=== PATIENT | male | born 1935 | race Caucasian/White ===

== ENCOUNTER 2017-12-13 12:27 | Observation (INO) | payer MEDICARE ==
[2017-12-13] VITALS (23 sets, daily range): BP systolic 82–168; BP diastolic 42–76
[~2017-12-13] VITALS: Ht 162.6 cm; Wt 78.1 kg
[2017-12-13] MEDS ORDERED: LORazepam 0.5 MG tablet PO PRN (13:00)
[2017-12-13] MEDS ORDERED: diphenhydrAMINE 25mg capsule PO PRN (13:00)
[2017-12-13] MEDS ORDERED: OSC500T PO (13:14)
[2017-12-13] MEDS ORDERED: VITA100T3 PO (13:14)
[2017-12-13] MEDS ORDERED: OMEP40CA37 PO (13:14)
[2017-12-13] MEDS ORDERED: ASCO-103 PO (13:14)
[2017-12-13] MEDS ORDERED: MULT-1085 PO (13:14)
[2017-12-13] MEDS ORDERED: SENN1TAB5 PO (13:14)
[2017-12-13] MEDS ORDERED: ASPI-920 PO (13:14)
[2017-12-13] MEDS ORDERED: VITA200T8 PO (13:14)
[2017-12-13] MEDS: normal saline 1000ml 1,000 ML IV SCH ×2 (13:25→20:00)
[2017-12-13 13:42] LABS: BASOPHILS # (AUTO) 0.2 X10'3 (0-0.2); BASOPHILS % (AUTO) 1.3 % (0-1); EOSINOPHILS # (AUTO) 0.3 X10'3 (0-0.9); EOSINOPHILS % (AUTO) 1.7 % (0-6); HEMATOCRIT 45.9 % (42.0-52.0); HEMOGLOBIN 15.5 g/dl (14.0-17.9); LYMPHOCYTES % (AUTO) 13.7 % (21-51); MEAN CORPUSCULAR HEMOGLOBIN 30.3 PG (27.0-31.0); MEAN CORPUSCULAR HGB CONC 33.7 % (33.0-36.5); MEAN PLATELET VOLUME 5.9 FL (7.4-10.4); MONOCYTES # (AUTO) 0.9 X10'3 (0-0.9); MONOCYTES % (AUTO) 6.2 % (2-12); NEUTROPHILS # (AUTO) 11.3 X10'3 (1.8-7.7); NEUTROPHILS % (AUTO) 77.1 % (42-75); PLATELET COUNT 631 X10'3 (140-440); RED CELL DISTRIBUTION WIDTH 14.8 % (11.5-14.5); WHITE BLOOD COUNT 14.6 X10'3 (4.5-11.0)
[2017-12-13 13:47] LABS: PARTIAL THROMBOPLASTIN TIME 30 SECONDS (22-32); PROTHROMBIN TIME 10.1 SECONDS (9.0-12.0)
[2017-12-13 13:52] LABS: ALBUMIN 3.8 G/DL (3.4-5.0); ANION GAP 8 (8-16); BLOOD UREA NITROGEN 18 MG/DL (7-18); CALCIUM 8.7 MG/DL (8.5-10.1); CHLORIDE 103 MMOL/L (99-107); GLUCOSE 86 MG/DL (70-104); POTASSIUM 3.8 MMOL/L (3.5-5.1); SODIUM 142 MMOL/L (135-145); eGFR 58 ML/MIN
[2017-12-13] MEDS ORDERED: fentaNYL/PF 50MCG/1 ML 2ML syringe ONE (13:53)
[2017-12-13] MEDS ORDERED: LIDOcaine 1%/PF (10mg/ml) 5ml vial ONE ×2 (13:53→15:27)
[2017-12-13] MEDS ORDERED: midazolam 2 mg/2 ml injection ONE (13:53)
[2017-12-13] MEDS ORDERED: iohexol 350 MG/ML 50ML vial IV ONE ×2 (13:54→14:33)
[2017-12-13] MEDS ORDERED: heparin 1,000unit/ml 10ml vial 10 ML ONE ×2 (13:54→15:31)
[2017-12-13] MEDS ORDERED: nitroGLYCERIN-Tridil 50MG/D5W 250 ML IV ONE (13:54)
[2017-12-13] MEDS ORDERED: heparin 1,000 UNITS/NS 500ml 500 ML ONE (13:54)
[2017-12-13] MEDS ORDERED: iohexol 350MG/ML 100ml bottle IV ONE ×2 (13:54→14:57)
[2017-12-13] MEDS ORDERED: ticagrelor 90mg tablet ONE (15:24)
[2017-12-13 15:41] LABS: ISTAT Hct MIX 39 %PCV (42-52); ISTAT O2 SATURATION MIX VENOUS 73 % (60-80); ISTAT SOURCE MIX
[2017-12-13 16:06] LABS: ISTAT HGB ART 12.9 g/dl (14.0-18.0); ISTAT Hct ART 38 %PCV (42-52); ISTAT O2 SATURATION ARTERIAL 94 % (95-98); ISTAT SOURCE ART
[2017-12-13] MEDS ORDERED: magnesium hydroxide 30ml (MOM) UD suspension PO PRN (17:15)
[2017-12-13] MEDS ORDERED: HYDROcodone/acetaminophen 10/325mg tab PO PRN ×2 (17:15)
[2017-12-13] MEDS ORDERED: acetaminophen 325mg tablet PO PRN (17:15)
[2017-12-13] MEDS ORDERED: cyclobenzaprine 10mg tablet PO PRN (17:15)
[2017-12-13] MEDS ORDERED: OXAZEpam 15mg capsule PO PRN (17:15)
[2017-12-13] MEDS: aspirin 81mg tab.chew PO SCH (17:30)
[2017-12-13] MEDS: docusate sod 100mg capsule PO SCH (20:00)
[2017-12-13] MEDS: ticagrelor 90mg tablet PO SCH (21:57)
[2017-12-14 03:00] VITALS: BP 111/57
[2017-12-14 06:14] LABS: BASOPHILS # (AUTO) 0.1 X10'3 (0-0.2); BASOPHILS % (AUTO) 0.6 % (0-1); EOSINOPHILS # (AUTO) 0.4 X10'3 (0-0.9); EOSINOPHILS % (AUTO) 2.2 % (0-6); HEMATOCRIT 40.1 % (42.0-52.0); HEMOGLOBIN 13.9 g/dl (14.0-17.9); LYMPHOCYTES # (AUTO) 1.5 X10'3 (1.1-4.8); MEAN CORPUSCULAR HGB CONC 34.6 % (33.0-36.5); MEAN CORPUSCULAR VOLUME 89.7 FL (78-98); MEAN PLATELET VOLUME 5.9 FL (7.4-10.4); MONOCYTES # (AUTO) 0.7 X10'3 (0-0.9); MONOCYTES % (AUTO) 4.3 % (2-12); NEUTROPHILS # (AUTO) 13.9 X10'3 (1.8-7.7); NEUTROPHILS % (AUTO) 83.9 % (42-75); PLATELET COUNT 531 X10'3 (140-440); RED BLOOD COUNT 4.47 X10'6 (4.70-6.10); RED CELL DISTRIBUTION WIDTH 14.8 % (11.5-14.5); WHITE BLOOD COUNT 16.6 X10'3 (4.5-11.0)
[2017-12-14 06:56] LABS: ALANINE AMINOTRANSFERASE 13 U/L (12-78); ALBUMIN 2.9 G/DL (3.4-5.0); ALBUMIN/GLOBULIN RATIO 0.8 (1.1-1.5); ALKALINE PHOSPHATASE 75 IU/L (46-116); ANION GAP 9 (8-16); ASPARTATE AMINO TRANSFERASE 11 U/L (10-37); BILIRUBIN,TOTAL 0.8 MG/DL (0.1-1.0); BLOOD UREA NITROGEN 18 MG/DL (7-18); BUN/CREATININE RATIO 15.5 (5.4-32.0); CALCIUM 8.1 MG/DL (8.5-10.1); CHLORIDE 108 MMOL/L (99-107); CHOL/HDL RATIO 5.4 (0.00-4.99); CHOLESTEROL 98 MG/DL (0-200); CREATININE 1.16 MG/DL (0.60-1.10); GLUCOSE 93 MG/DL (70-104); HDL CHOLESTEROL 18 MG/DL (35-60); LDL CHOLESTEROL 66 MG/DL (50-100); POTASSIUM 4.1 MMOL/L (3.5-5.1); SODIUM 143 MMOL/L (135-145); TOTAL CARBON DIOXIDE 26.4 MMOL/L (24-32); TOTAL PROTEIN 6.4 G/DL (6.4-8.2); TRIGLYCERIDES 107 MG/DL (20-135); eGFR 60 ML/MIN
[2017-12-14 07:00] VITALS: BP 122/51
[2017-12-14] MEDS: aspirin 81mg tab.chew PO SCH (07:14)
[2017-12-14] MEDS: docusate sod 100mg capsule PO SCH (07:14)
[2017-12-14] MEDS: ticagrelor 90mg tablet PO SCH (07:15)
[2017-12-14] MEDS ORDERED: pantoprazole 40mg Tablet.DR PO SCH (07:30)
[2017-12-14] MEDS ORDERED: TICA90TA PO (07:33)
[2017-12-14] MEDS ORDERED: ATOR20TA66 PO (07:33)
[2017-12-14] MEDS ORDERED: atorvastatin 20mg tablet PO SCH (08:00)
[2017-12-14] MEDS ORDERED: calcium carbonate 500mg tablet PO SCH (08:00)
[2017-12-14] MEDS ORDERED: vitamin E 400 unit capsule PO SCH (08:00)
[2017-12-14] MEDS ORDERED: multivitamins, therapeutics tablet PO SCH (08:00)
[2017-12-14] MEDS ORDERED: ascorbic acid 500mg tablet PO SCH (08:00)
[2017-12-14] MEDS ORDERED: sennosides/docusate sodium tablet PO SCH (08:00)
== END 2017-12-14 08:32 | disposition home or self-care (01) ==
LOC: SSTAY O 12:27 → PCU 3S 20:08
PROVIDERS: ADMIT Internal Medicine Cardiovascular Disease; ATTEND Internal Medicine Cardiovascular Disease
DX: I25.10 Atherosclerotic heart disease of native coronary artery without angina pectoris (principal); E78.5 Hyperlipidemia, unspecified; R94.39 Abnormal result of other cardiovascular function study; R53.83 Other fatigue; R06.00 Dyspnea, unspecified; R00.1 Bradycardia, unspecified; Z79.899 Other long term (current) drug therapy
CPT/HCPCS: 36415; 80048; 80053; 80061; 82803; 85014; 85025; 85347; 85610; 85730; 87070; 93005; 93460; A6257; A6258; C1725; C1769; C1874; C1894; C9600; G0378; J1644; J2001; J2250; J3010; J3490; J7030; Q0163; Q9967; 99152; 99153; A4620

== ENCOUNTER 2019-03-20 09:49 | Day surgery (SDC) | payer MEDICARE ==
[2019-03-19 11:04] LABS: BASOPHILS # (AUTO) 0.1 X10'3 (0-0.2); EOSINOPHILS # (AUTO) 0.2 X10'3 (0-0.9); EOSINOPHILS % (AUTO) 1.4 % (0-6); HEMATOCRIT 38.6 % (42.0-52.0); HEMOGLOBIN 12.4 g/dl (14.0-17.9); LYMPHOCYTES # (AUTO) 1.5 X10'3 (1.1-4.8); LYMPHOCYTES % (AUTO) 12.2 % (21-51); MEAN CORPUSCULAR HEMOGLOBIN 27.6 PG (27.0-31.0); MEAN CORPUSCULAR HGB CONC 32.1 g/dL (33.0-36.5); MEAN CORPUSCULAR VOLUME 86.2 FL (78-98); MEAN PLATELET VOLUME 6.6 FL (7.4-10.4); MONOCYTES # (AUTO) 0.7 X10'3 (0-0.9); MONOCYTES % (AUTO) 5.7 % (2-12); NEUTROPHILS # (AUTO) 9.7 X10'3 (1.8-7.7); NEUTROPHILS % (AUTO) 79.7 % (42-75); PLATELET COUNT 407 X10'3 (140-440); RED BLOOD COUNT 4.47 X10'6 (4.70-6.10); RED CELL DISTRIBUTION WIDTH 19.8 % (11.5-14.5); WHITE BLOOD COUNT 12.2 X10'3 (4.5-11.0)
[2019-03-19 11:17] LABS: PARTIAL THROMBOPLASTIN TIME 30 SECONDS (22-32)
[2019-03-19 11:19] LABS: ALANINE AMINOTRANSFERASE 27 U/L (12-78); ALBUMIN 2.8 G/DL (3.4-5.0); ALBUMIN/GLOBULIN RATIO 0.7 (1.1-1.5); ALKALINE PHOSPHATASE 110 IU/L (46-116); ANION GAP 8 (8-16); ASPARTATE AMINO TRANSFERASE 14 U/L (10-37); BILIRUBIN,TOTAL 0.8 MG/DL (0.1-1.0); BLOOD UREA NITROGEN 12 MG/DL (7-18); BUN/CREATININE RATIO 10.5 (5.4-32.0); CALCIUM 7.9 MG/DL (8.5-10.1); CHLORIDE 108 MMOL/L (99-107); CHOL/HDL RATIO 3.9 (0.00-4.99); CHOLESTEROL 59 MG/DL (0-200); CREATININE 1.14 MG/DL (0.60-1.10); GLUCOSE 88 MG/DL (70-104); HDL CHOLESTEROL 15 MG/DL (35-60); LDL CHOLESTEROL 38 MG/DL (50-100); POTASSIUM 4.3 MMOL/L (3.5-5.1); SODIUM 142 MMOL/L (135-145); TOTAL CARBON DIOXIDE 26.5 MMOL/L (24-32); TOTAL PROTEIN 6.8 G/DL (6.4-8.2); TRIGLYCERIDES 62 MG/DL (20-135); eGFR 61 ML/MIN
[2019-03-20] VITALS (9 sets, daily range): BP systolic 113–139; BP diastolic 54–67
[~2019-03-20] VITALS: Ht 165.1 cm; Wt 73.3 kg
[~2019-03-20 09:49] MED LIST: ASCO-103 PO; ASPI-920 PO; ATOR20TA66 PO; MULT-1085 PO; OMEP40CA37 PO; OSC500T PO; SENN-250 PO; TICA90TA PO; VITA100T3 PO; VITA200T8 PO
[2019-03-20] MEDS ORDERED: LORazepam 0.5 MG tablet PO PRN (10:15)
[2019-03-20] MEDS ORDERED: diphenhydrAMINE 25mg capsule PO PRN (10:15)
[2019-03-20] MEDS ORDERED: CLOP75TA15 PO (10:43)
[2019-03-20] MEDS ORDERED: ATOR40TA PO (10:43)
[2019-03-20] MEDS ORDERED: CALC600T12 PO (10:43)
[2019-03-20] MEDS ORDERED: TEST200V10 IM (10:43)
[2019-03-20] MEDS ORDERED: PANT-47 PO (10:43)
[2019-03-20] MEDS ORDERED: GLUC-150 PO (10:43)
[2019-03-20] MEDS ORDERED: LEVE500T PO (10:43)
[2019-03-20] MEDS: normal saline 1,000 ML IV SCH ×2 (11:32→12:40)
[2019-03-20] MEDS ORDERED: nitroGLYCERIN-Tridil 50MG/D5W 250 ML IV ONE (12:09)
[2019-03-20] MEDS ORDERED: fentaNYL/PF 50MCG/1 ML 2ML syringe ONE (12:09)
[2019-03-20] MEDS ORDERED: LIDOcaine 1% (10mg/ml)w/preservative injection 20ml MDV ONE (12:09)
[2019-03-20] MEDS ORDERED: midazolam 2 mg/2 ml injection ONE (12:09)
[2019-03-20] MEDS ORDERED: iohexol 350 MG/ML 50ML vial IV ONE (12:10)
[2019-03-20] MEDS ORDERED: iohexol 350MG/ML 100ml bottle IV ONE (12:10)
[2019-03-20] MEDS ORDERED: heparin 1,000unit/ml 10ml vial 10 ML ONE (12:10)
[2019-03-20] MEDS ORDERED: verapamil 2.5 mg/ml inj IV ONE (12:21)
--- NOTE | 2019-03-20 14:00 | NUR ---
pt ate 100% of lunch tray and consumed 250ml fluids
--- NOTE | 2019-03-20 15:18 | NUR ---
pt ambulated to bathroom, 15 feet, denies sob, denies cp. tolerated this well. voided.
== END 2019-03-20 18:00 | disposition home or self-care (01) ==
LOC: SSTAY O 09:49
PROVIDERS: ATTEND Internal Medicine Cardiovascular Disease
DX: I25.10 Atherosclerotic heart disease of native coronary artery without angina pectoris (principal); I25.82 Chronic total occlusion of coronary artery; J44.9 Chronic obstructive pulmonary disease, unspecified; E78.5 Hyperlipidemia, unspecified; Z98.890 Other specified postprocedural states; Z80.9 Family history of malignant neoplasm, unspecified; Z95.5 Presence of coronary angioplasty implant and graft; Z91.040 Latex allergy status; Z87.891 Personal history of nicotine dependence
CPT/HCPCS: 36415; 80053; 80061; 85025; 85610; 85730; 93005; 93458; 99152; 99153; J1644; J2001; J2250; J3010; J7030; Q0163; Q9967; A4620; C1769; J3490